=== PATIENT | female | born 1970 | race Caucasian/White ===

== ENCOUNTER → 2021-02-21 | Outpatient (CLI) | payer BC ==
--- NOTE | 2021-02-21 15:33 | XR ---
EXAMINATION TYPE: XR hand limited LT DATE OF EXAM: 02/21/2021 COMPARISON: NONE HISTORY: Pain TECHNIQUE: Two views are submitted. FINDINGS: The osseous structures are intact. Mild arthropathy first carpal metacarpal joint and there is no acu te fracture or dislocation. Slight deformity of the scaphoid may be positional. IMPRESSION: 1. Mild arthropathy first carpal metacarpal joint. There is slight deformity of the scaphoid which katey wong is positional. Recommend a follow-up scaphoid view.
== END | disposition home or self-care (01) ==
LOC: RADXRMAIN 15:02
PROVIDERS: ATTEND Physician Assistant
DX: M12.842 Other specific arthropathies, not elsewhere classified, left hand (principal)